=== PATIENT | female | born 1990 | race Caucasian/White ===

== ENCOUNTER 2018-10-23 12:34 | Emergency (ER) | payer OTHER ==
--- NOTE | 2018-10-23 13:06 | EDM.PDOC ---
ED HPI GENERAL MEDICAL PROBLEM - General Chief Complaint: Abdominal Pain Stated Complaint: STOMACH PAIN Time Seen by Provider: 10/23/18 12:35 Source of Information: Reports: Patient History Limitations: Reports: No Limitations - History of Present Illness INITIAL COMMENTS - FREE TEXT/NARRATIVE: HISTORY AND PHYSICAL: History of present illness: Patient is a 28-year-old female presents to the ED today with concern of central abdominal pain since last night. Patient states she has a history of gastric bypass as well at her baseline and has a constant abdominal pain since the surgery that was done in April of this year. Patient states she did not have any complications of the surgery. This was done at [facility] in [place]. Patient states she was sitting at home last night when she started to have 9 out of 10 mid abdominal pain. Patient states she's had limited eating since due to pain but has not vomited. Patient denies any other health history or any other symptoms or concerns. Patient states she also has a history of cholecystectomy. Patient denies fever, chills, chest pain, shortness of breath, or cough. Denies headache, neck stiff ness, change in vision, syncope, or near syncope. Denies vomiting, diarrhea, constipation, or dysuria. Has not noted any blood in urine or stool. Review of systems: As per history of present illness and below otherwise all systems reviewed and negative. Past medical history: As per history of present illness and as reviewed below otherwise noncontributory. Surgical history: As per history of present illness and as reviewed below otherwise noncontributory. Social history: See social history for further information Family history: As per history of present illness and as reviewed below otherwise noncontributory. Physical exam: General: Patient is alert, oriented, and in no acute distress. Patient laying on exam table; mildly uncomfortable holding abdomen. HEENT: Atraumatic, normocephalic, pupils equal and reactive bilaterally, negative for conjunctival pallor or scleral icterus, mucous membranes moist, TMs normal bilaterally, throat clear, neck supple, nontender, trachea midline. No drooling or trismus noted. No meningeal signs. No hot potato voice noted. Lungs: Clear to auscultation, breath sounds equal bilaterally, chest nontender. Heart: S1S2, regular rate and rhythm without overt murmur Abdomen: Soft, nondistended. Severe pain to palpation of the generalized abdomen with guarding and positive rebound. Negative for masses or hepatosplenomegaly. Negative for costovertebral tenderness. Pelvis: Stable nontender. Genitourinary: Deferred. Rectal: Deferred. Skin: Intact, warm, dry. No lesions or rashes noted. Extremities: Atraumatic, negative for cords or calf pain. Neurovascular unremarkable. Neuro: Awake, alert, oriented. Cranial nerves II through XII unremarkable. Cerebellum unremarkable. Motor and sensory unremarkable throughout. Exam nonfocal. Notes: Dr. York directly involved in patient care. Voices understanding and is agreeable to plan of care. Denies any further questions or concerns at this time. Diagnostics: CBC, CMP, UA, lipase, abdominal pelvic CT, TVUS Therapeutics: Saline, Toradol, Zofran Prescription: None Impression: Ovarian cyst H/O gastric bypass surgery Plan: 1. Follow up with your gastric bypass surgeon as discussed. Follow up with the [employer]X INTERACTION DESIGNER as discussed. 2. You can alternate ibuprofen and Tylenol as directed for pain and discomfort. 3. Return to the ED as needed and as discussed. Definitive disposition and diagnosis as appropriate pending reevaluation and review of above. Abdominal Pain Score (Numeric/FACES): 10 - Related Data Allergies Allergy/AdvReac Type Severity Reaction Status Date / Time No Known Allergies Allergy Verified 06/27/14 11:44 Home Meds: Home Meds . [No Known Home Meds] 06/27/14 [History] Past Medical History - Infectious Disease History Infectious Disease History: Reports: Chicken Pox - Past Surgical History GI Surgical History: Reports: Bariatric Procedure Female Surgical History: Reports: Tubal Ligation Social & Family History - Family History Family Medical History: Noncontributory - Tobacco Use Smoking Status *Q: Never Smoker Second Hand Smoke Exposure: No - Caffeine Use Caffeine Use: Reports: None - Recreational Drug Use Recreational Drug Use: No ED ROS GENERAL - Review of Systems Review Of Systems: ROS reveals no pertinent complaints other than HPI. ED EXAM, GENERAL - Physical Exam Exam: See Below (See dictation) Course - Vital Signs Last Recorded V/S: Last Vital Signs Temp 36.6 C 10/23/18 12:53 Pulse 69 10/23/18 15:27 Resp 18 10/23/18 15:27 BP 106/59 L 10/23/18 15:27 Pulse Ox 97 10/23/18 15:27 - Orders/Labs/Meds Orders: Active Orders 24 hr Category Date Time Status CULTURE URINE [RM] Stat Lab 10/23/18 12:35 Received Labs: Laboratory Tests 10/23/18 10/23/18 10/23/18 Range/Units 12:35 13:10 13:10 WBC 8.31 (4.0-11.0) K/uL RBC 4.06 L (4.30-5.90) M/uL Hgb 12.5 (12.0-16.0) g/dL Hct 37.7 (36.0-46.0) % MCV 92.9 (80.0-98.0) fL MCH 30.8 (27.0-32.0) pg MCHC 33.2 (31.0-37.0) g/dL RDW Std Deviation 45.3 (28.0-62.0) fl RDW Coeff of Man 13 (11.0-15.0) % Plt Count 207 (150-400) K/uL MPV 11.60 (7.40-12.00) fL Neut % (Auto) 77.8 (48.0-80.0) % Lymph % (Auto) 15.5 L (16.0-40.0) % [place] % (Auto) 5.4 (0.0-15.0) % Eos % (Auto) 1.1 (0.0-7.0) % Baso % (Auto) 0.2 (0.0-1.5) % Neut # (Auto) 6.5 H (1.4-5.7) K/uL Lymph # (Auto) 1.3 (0.6-2.4) K/uL [place] # (Auto) 0.5 (0.0-0.8) K/uL Eos # (Auto) 0.1 (0.0-0.7) K/uL Baso # (Auto) 0.0 (0.0-0.1) K/uL Nucleated RBC % 0.0 /100WBC Nucleated RBCs # 0 K/uL Sodium 141 (136-145) mmol/L Potassium 4.0 (3.5-5.1) mmol/L Chloride 106 (98-107) mmol/L Carbon Dioxide 22.1 (21.0-32.0) mmol/L BUN 9 (7.0-18.0) mg/dL Creatinine 0.7 (0.6-1.0) mg/dL Est Cr Clr Drug Dosing 111.01 mL/min Estimated GFR (MDRD) > 60.0 ml/min Glucose 87 (74-106) mg/dL Calcium 9.1 (8.5-10.1) mg/dL Total Bilirubin 0.6 (0.2-1.0) mg/dL AST 15 (15-37) IU/L ALT 17 (14-63) IU/L Alkaline Phosphatase 68 (46-116) U/L Total Protein 6.1 L (6.4-8.2) g/dL Albumin 3.3 L (3.4-5.0) g/dL Globulin 2.8 (2.6-4.0) g/dL Albumin/Globulin Ratio 1.2 (0.9-1.6) Lipase 46 L (73-393) U/L Urine Color YELLOW Urine Appearance CLEAR Urine pH 6.0 (5.0-8.0) Ur Specific [place] 1.025 (1.001-1.035) Urine Protein NEGATIVE (NEGATIVE) mg/dL Urine Glucose (UA) NEGATIVE (NEGATIVE) mg/dL Urine Ketones >=80 (NEGATIVE) mg/dL Urine Occult Blood NEGATIVE (NEGATIVE) Urine Nitrite NEGATIVE (NEGATIVE) Urine Bilirubin NEGATIVE (NEGATIVE) Urine Urobilinogen 2.0 H (<2.0) EU/dL Ur Leukocyte Esterase TRACE H (NEGATIVE) Urine RBC 0-2 (0-2/HPF) Urine WBC 2-4 (0-5/HPF) Ur Epithelial Cells RARE (NONE-FEW) Urine Bacteria FEW (NEGATIVE) Urine Mucus FEW (NONE-MOD) Meds: Medications Discontinued Medications Generic Name Dose Route Start Last Admin Trade Name Freq PRN Reason Stop Dose Admin Sodium Chloride 1,000 mls @ 999 mls/hr 10/23/18 12:55 10/23/18 13:14 Normal Saline IV 10/23/18 13:55 999 mls/hr BOLUS ONE Administration Iopamidol 100 ml 10/23/18 14:59 10/23/18 15:00 Isovue Multipack-370 (76%) IVPUSH 10/23/18 15:00 100 ml ONETIME STA Administration Ketorolac Tromethamine 30 mg 10/23/18 12:55 10/23/18 13:17 Toradol IVPUSH 10/23/18 12:56 30 mg ONETIME ONE Administration Ondansetron HCl 4 mg 10/23/18 12:55 10/23/18 13:15 Zofran IVPUSH 10/23/18 12:56 4 mg ONETIME ONE Administration Departure - Departure Time of Disposition: 16:50 Disposition: Home, Self-Care 01 Clinical Impression: Ovarian cyst, History of gastric bypass - Discharge Information Referrals: PCP,Unknown [Primary Care Provider] - Forms: ED Department Discharge Additional Instructions: The following information is given to patients seen in the emergency department who are being discharged to home. This information is to outline your options for follow-up care. We provide all patients seen in our emergency department with a follow-up referral. The need for follow-up, as well as the timing and circumstances, are variable depending upon the specifics of your emergency department visit. If you don't have a primary care physician on staff, we will provide you with a referral. We always advise you to contact your personal physician following an emergency department visit to inform them of the circumstance of the visit and for follow-up with them and/or the need for any referrals to a consulting specialist. The emergency department will also refer you to a specialist when appropriate. This referral assures that you have the opportunity for follow-up care with a specialist. All of these measure are taken in an effort to provide you with optimal care, which includes your follow-up. Under all circumstances we always encourage you to contact your private physician who remains a resource for coordinating your care. When calling for follow-up care, please make the office aware that this follow-up is from your recent emergency room visit. If for any reason you are refused follow-up, please contact the [facility] Emergency Department at and asked to speak to the emergency department charge nurse. [facility] [address] [place] [id number] [id number] [facility] [address] [place] [id number] 1. Follow up with your gastric bypass surgeon as discussed. Follow up with the UX INTERACTION DESIGNER as discussed. 2. You can alternate ibuprofen and Tylenol as directed for pain and discomfort. 3. Return to the ED as needed and as discussed. - My Orders Last 24 Hours: My Active Orders 10/23/18 12:35 CULTURE URINE [RM] Stat - Assessment/Plan Last 24 Hours: My Active Orders 10/23/18 12:35 CULTURE URINE [RM] Stat
[2018-10-23] MEDS: Sodium Chloride 0.9% 1,000 ML IV ONE (13:14)
[2018-10-23] MEDS: Ondansetron 4 MG/2 ML SDV IVPUSH ONE (13:15)
[2018-10-23] MEDS: Ketorolac 30 MG/ML SDV IVPUSH ONE (13:17)
[2018-10-23 13:58] LABS: BLOOD UREA NITROGEN,BUN 9 mg/dL (7.0-18.0); CARBON DIOXIDE,CO2 22.1 mmol/L (21.0-32.0); CHLORIDE,CL 106 mmol/L (98-107); GLUCOSE RANDOM 87 mg/dL (74-106); SODIUM,NA 141 mmol/L (136-145)
[2018-10-23] MEDS: Iopamidol 755 MG/ML 500 ML Multipack Bottle IVPUSH STA (15:00)
--- NOTE | 2018-10-23 15:18 | CT ---
CT abdomen and pelvis Technique: Multiple axial sections were obtained from above the dome of the diaphragm inferiorly through the pubic symphysis. Intravenous contrast was utilized. No oral contrast has been. Comparison: No prior abdominal imaging. Findings: Visualized lung bases show nothing acute. Wedge-shaped area of decreased density is seen next to the ligamentum teres fissure. No other abnormal parenchymal densities are seen within the liver. Spleen appears within normal limits. Previous stomach surgery is noted. Adrenal glands show no nodule. Pancreas is within normal limits. Kidneys show symmetric contrast enhancement with no hydronephrosis or mass being seen. Pancreas is within normal limits. Aorta shows no aneurysm. No retroperitoneal adenopathy or mesenteric abnormalities are seen. Small fat-containing umbilical hernia is noted. Small amount of free fluid is seen within the pelvis most likely due to ovarian cyst leakage. Fibroid noted within the uterus measuring 3.3 cm in size. Cyst is noted within the left ovary measuring 3.7 cm in size. No inflammatory change is seen. Appendix is felt to be visualized and is within normal limits. Bone window settings were reviewed which shows no acute osseous abnormality. Impression: 1. Fluid within the pelvis most likely resulting from ovarian cyst leakage. There is a 3.7 cm cyst noted within the left ovary. 2. Small uterine fibroid. 3. Wedge-shaped low-density finding anteriorly within the liver next to the ligamentum teres fissure. If patient has had no previous trauma for this to represent previous liver laceration, MRI is recommended to further evaluate which should include contrast. 4. Other incidental findings. Diagnostic code #9 MTDD
--- NOTE | 2018-10-23 16:26 | US ---
Comparison: Prior CT abdomen and pelvis exam performed earlier on the same day ( 2:40 PM). Findings: Free fluid is noted within the cul-de-sac and within the right adnexa. Follicles are seen within the ovaries. Nabothian cysts are present. Left ovary shows a complicated cyst measuring about 3.2 cm most likely due to hemorrhagic cyst. Uterine fibroid is seen on the left side. Fibroid measures about 3.0 cm. No other myometrial abnormality is seen. Endometrial thickness is 1.2 cm. Measurements: Uterus: Length 8.7 cm, AP height is 4.4 cm, transverse width is 5.4 cm Right ovary: 3.3 x 2.5 x 1.9 cm Left ovary: 4.3 with 4.0 x 3.4 cm Impression: 1. Uterine fibroid. 2. Complicated left ovarian cyst measuring 3.2 cm most likely representing hemorrhagic cyst. 3. Fair amount of free fluid is seen within cul-de-sac and right adnexa. 4. Nabothian cysts. Diagnostic code #3 MTDD
[2018-10-23 17:09] VITALS: BP 109/69
== END 2018-10-23 17:09 | disposition home or self-care (01) ==
LOC: MW.ED 12:34
DX: N83.202 Unspecified ovarian cyst, left side (principal); Z98.84 Bariatric surgery status; Z90.49 Acquired absence of other specified parts of digestive tract; Z98.51 Tubal ligation status
CPT/HCPCS: 74177; 76830; 80053; 81001; 83690; 85025; 87086; 87088; 87186; 96361; 96374; 96375; 99284; J1885; J2405; J7040; Q9967

== ENCOUNTER 2018-11-11 06:25 | Day surgery (SDC) | payer OTHER ==
[2018-11-11] MEDS ORDERED: Propofol 200 MG/20 ML SDV ONE (07:18)
[2018-11-11] MEDS ORDERED: Midazolam 1 MG/ML 2 ML SDV ONE (07:18)
[2018-11-11] MEDS ORDERED: fentaNYL 100 MCG/2 ML SDV ONE (07:18)
[2018-11-11] MEDS ORDERED: Scopolamine 1.5 MG Transdermal Patch ONE (07:21)
[2018-11-11] MEDS ORDERED: Ondansetron 4 MG/2 ML SDV ONE (07:21)
[2018-11-11] MEDS ORDERED: Rocuronium 100 MG/10 ML Syringe ONE (07:21)
[2018-11-11] MEDS ORDERED: Dexamethasone 4 MG/ML 5 ML MDV ONE (07:21)
[2018-11-11] MEDS ORDERED: Lidocaine 2% 5 ML SDV ONE (07:21)
[2018-11-11] MEDS ORDERED: Scopolamine 1.5 MG Transdermal Patch TRDERM PRN (07:22)
--- NOTE | 2018-11-11 07:22 | PCM.PREANE ---
Preanesthetic Assessment - Anesthesia/Transfusion/Family Hx Anesthesia History: Prior Anesthesia Without Reaction Family History of Anesthesia Reaction: No Transfusion History: No Prior Transfusion(s) Intubation History: Unknown - Review of Systems General: No Symptoms Pulmonary: No Symptoms Cardiovascular: No Symptoms Gastrointestinal: No Symptoms Neurological: No Symptoms Other: Reports: None - Physical Assessment Vital Signs: Last Vital Signs Temp 36.4 C 11/11/18 07:04 Pulse 98 11/11/18 07:04 Resp 16 11/11/18 07:04 BP 118/62 11/11/18 07:04 Pulse Ox 99 11/11/18 07:04 Height: 5 ft 4 in Weight: 83.461 kg ASA Class: 2 Mental Status: Alert & Oriented x3 Airway Class: Mallampati = 2 Dentition: Reports: Normal Dentition Thyro-Mental Finger Breadths: 3 Mouth Opening Finger Breadths: 3 ROM/Head Extension: Full Lungs: Clear to Auscultation, Normal Respiratory Effort Cardiovascular: Regular Rate, Regular Rhythm - Lab Values: Laboratory Last Values WBC 4.21 K/uL (4.0-11.0) 11/11/18 07:06 RBC 3.93 M/uL (4.30-5.90) L 11/11/18 07:06 Hgb 12.1 g/dL (12.0-16.0) 11/11/18 07:06 Hct 37.1 % (36.0-46.0) 11/11/18 07:06 MCV 94.4 fL (80.0-98.0) 11/11/18 07:06 MCH 30.8 pg (27.0-32.0) 11/11/18 07:06 MCHC 32.6 g/dL (31.0-37.0) 11/11/18 07:06 RDW Std Deviation 46.2 fl (28.0-62.0) 11/11/18 07:06 RDW Coeff of Man 13 % (11.0-15.0) 11/11/18 07:06 Plt Count 176 K/uL (150-400) 11/11/18 07:06 MPV 11.30 fL (7.40-12.00) 11/11/18 07:06 Neut % (Auto) 51.7 % (48.0-80.0) 11/11/18 07:06 Lymph % (Auto) 34.9 % (16.0-40.0) 11/11/18 07:06 [place] % (Auto) 8.1 % (0.0-15.0) 11/11/18 07:06 Eos % (Auto) 4.8 % (0.0-7.0) 11/11/18 07:06 Baso % (Auto) 0.5 % (0.0-1.5) 11/11/18 07:06 Neut # (Auto) 2.2 K/uL (1.4-5.7) 11/11/18 07:06 Lymph # (Auto) 1.5 K/uL (0.6-2.4) 11/11/18 07:06 [place] # (Auto) 0.3 K/uL (0.0-0.8) 11/11/18 07:06 Eos # (Auto) 0.2 K/uL (0.0-0.7) 11/11/18 07:06 Baso # (Auto) 0.0 K/uL (0.0-0.1) 11/11/18 07:06 Nucleated RBC % 0.0 /100WBC 11/11/18 07:06 Nucleated RBCs # 0 K/uL 11/11/18 07:06 - Allergies Allergies/Adverse Reactions: Allergies Allergy/AdvReac Type Severity Reaction Status Date / Time morphine Allergy Nausea and Verified 11/11/18 07:19 Vomiting - Blood Blood Available: No - Anesthesia Plan Pre-Op Medication Ordered: None - Acknowledgements Anesthesia Type Planned: General Anesthesia Pt an Appropriate Candidate for the Planned Anesthesia: Yes Alternatives and Risks of Anesthesia Discussed w Pt/Guardian: Yes Pt/Guardian Understands and Agrees with Anesthesia Plan: Yes PreAnesthesia Questionnaire HEENT History: Reports: None Cardiovascular History: Reports: None Respiratory History: Reports: None Gastrointestinal History: Reports: Hemorrhoids Genitourinary History: Reports: Renal Calculus [employer]IL History: Reports: Musculoskeletal History: Reports: Fracture Other Musculoskeletal History: hx fx arm as a chlld Neurological History: Reports: Other (See Below) Other Neuro History: increased intracarianal pressure, has had multiple lumbar punctures to relieve pressure- OK since loosing 100 pounds after gastric by- pass in april of this year Psychiatric History: Reports: Anxiety, Depression Endocrine/Metabolic History: Reports: Obesity/BMI 30+ Hematologic History: Reports: None Immunologic History: Reports: None Oncologic (Cancer) History: Reports: None Dermatologic History: Reports: None - Infectious Disease History Infectious Disease History: Reports: Chicken Pox - Past Surgical History Head Surgeries/Procedures: Reports: None HEENT Surgical History: Reports: None Cardiovascular Surgical History: Reports: None Respiratory Surgical History: Reports: None GI Surgical History: Reports: Bariatric Procedure, Cholecystectomy Female Surgical History: Reports: Tubal Ligation Endocrine Surgical History: Reports: None Neurological Surgical History: Reports: Other (See Below) Other Neurological Surgeries/Procedures: multiple lumbar punctures Musculoskeletal Surgical History: Reports: None Oncologic Surgical History: Reports: None Dermatological Surgical History: Reports: None - SUBSTANCE USE Smoking Status *Q: Never Smoker Recreational Drug Use History: No - HOME MEDS Home Medications: Home Meds Calcium Carbonate [Calcium] 2 tab PO DAILY 11/07/18 [History] Ibuprofen [Motrin Ib] 4 tab PO ASDIRECTED PRN 11/07/18 [History] Multivit-Min/Iron/Folic Acid/K [Bariatric Mv-Iron 45 mg Cap] 1 tab PO DAILY [History] PARoxetine [Paxil] 20 mg PO DAILY 11/07/18 [History]
[2018-11-11] MEDS ORDERED: Fluorescein 5 ML Vial ONE (07:23)
[2018-11-11] MEDS ORDERED: Bupivacaine 0.25% 10 ML SDV ONE (07:23)
[2018-11-11 07:39] LABS: BLOOD UREA NITROGEN,BUN 9 mg/dL (7.0-18.0); CHLORIDE,CL 104 mmol/L (98-107); GLUCOSE RANDOM 74 mg/dL (74-106); POTASSIUM,K 3.6 mmol/L (3.5-5.1); SODIUM,NA 140 mmol/L (136-145)
[2018-11-11] MEDS ORDERED: Sodium Chloride 0.9% 10 ML SDV IV PRN (07:56)
[2018-11-11] MEDS ORDERED: Sodium Chloride 0.9% 10 ML Syringe FLUSH PRN (07:56)
[2018-11-11] MEDS ORDERED: Sodium Chloride 0.9% 2.5 ML Syringe FLUSH PRN (07:56)
[2018-11-11] MEDS ORDERED: ceFAZolin 2 GM in Premix Bag 1 BAG IV ONE (07:56)
[2018-11-11] MEDS ORDERED: ceFAZolin/Dextrose,Iso-Osmotic 2 GM/50 ML Duplex Bag IV ONE (08:09)
[2018-11-11] MEDS ORDERED: Albuterol 0.083% 2.5 MG/3 ML Neb Soln NEB PRN (08:45)
[2018-11-11] MEDS ORDERED: 50% Dextrose in Water 50 ML Syringe IVPUSH PRN (08:45)
[2018-11-11] MEDS ORDERED: Naloxone 0.4 MG/ML Syringe IVPUSH PRN (08:45)
[2018-11-11] MEDS ORDERED: EPINEPHrine 1:10,000 1 MG/10 ML Syringe IVPUSH PRN (08:45)
[2018-11-11] MEDS ORDERED: Atropine 0.1 MG/ML 10 ML Syringe IVPUSH PRN ×2 (08:45)
[2018-11-11] MEDS ORDERED: fentaNYL 100 MCG/2 ML SDV IVPUSH PRN (08:45)
[2018-11-11] MEDS ORDERED: HYDROmorphone 2 MG/ML Syringe ONE (09:25)
[2018-11-11] MEDS ORDERED: ePHEDrine 50 MG/ML SDV ONE (09:34)
[2018-11-11] MEDS ORDERED: Glycopyrrolate 0.2 MG/ML SDV ONE (09:37)
[2018-11-11] MEDS ORDERED: Octyl 2-Cyanoacrylate 1 Tube ONE (09:42)
[2018-11-11] MEDS ORDERED: Furosemide 40 MG/4 ML VIAL ONE (09:53)
[2018-11-11] MEDS ORDERED: HYDROmorphone 2 MG/ML Syringe IVPUSH PRN (10:00)
[2018-11-11] MEDS ORDERED: Neostigmine Methylsulfate 1 MG/ML 5 ML Syringe ONE (10:03)
[2018-11-11] MEDS ORDERED: Ketorolac 30 MG/ML SDV ONE (10:10)
[2018-11-11] MEDS ORDERED: Ibuprofen 800 MG Tab PO PRN (10:31)
[2018-11-11] MEDS ORDERED: Ondansetron 4 MG/2 ML SDV IVPUSH PRN (10:31)
[2018-11-11] MEDS ORDERED: Ketorolac 30 MG/ML SDV IVPUSH ONE (10:31)
[2018-11-11] MEDS ORDERED: Promethazine 25 MG/ML SDV IM PRN (10:31)
--- NOTE | 2018-11-11 10:40 | PCM.OPNOTE ---
- General Post-Op/Procedure Note Date of Surgery/Procedure: 11/11/18 Operative Procedure(s): Total Laparoscopic Hysterectomy. Bilateral salphingectomy Findings: Normal sized anterverted uterus Evidence of BTL noted in tube Pre Op Diagnosis: Abnormal uterine bleeding. Chronic Pelvic pain Post-Op Diagnosis: same Anesthesia Technique: General ET Tube Primary Surgeon: Jose Cedillo Secondary Surgeon: Izabela Rapp Anesthesia Provider: Anya Martinez Pathology: Uterus and tubes Fluid Replacement, Intraop: 1,600 Output, Urine Amount: 225 EBL in mLs: 100 Complications: None Condition: Good
--- NOTE | 2018-11-11 11:17 | PCM.POSTAN ---
POST ANESTHESIA ASSESSMENT - MENTAL STATUS Mental Status: Alert, Oriented - VITAL SIGNS Vital Signs: Last Vital Signs Temp 36.4 C 11/11/18 10:24 Pulse 66 11/11/18 11:04 Resp 14 11/11/18 11:04 BP 98/56 L 11/11/18 11:04 Pulse Ox 100 11/11/18 11:04 - RESPIRATORY Respiratory Status: Respiratory Rate WNL, Airway Patent, O2 Saturation Stable - CARDIOVASCULAR CV Status: Pulse Rate WNL, Blood Pressure Stable - GASTROINTESTINAL GI Status: No Symptoms - PAIN Pain Score: 0 - POST OP HYDRATION Hydration Status: Adequate & Stable - OBSERVATIONS Free Text/Narrative:: no anesthesia problems
[2018-11-11] MEDS: Metoclopramide 10 MG/2 ML SDV IVPUSH SCH ×3 (14:55→23:44)
[2018-11-11] MEDS: Acetaminophen 1,000 MG in Premix Bag 1 BAG IV SCH ×5 (14:56→23:51)
[2018-11-11] MEDS ORDERED: Simethicone 80 MG Tab.Chew PO PRN (15:04)
[2018-11-11] MEDS: Ketorolac 30 MG/ML SDV IVPUSH SCH (17:46)
[2018-11-12] MEDS: Ketorolac 30 MG/ML SDV IVPUSH SCH (02:01)
[2018-11-12] MEDS: Metoclopramide 10 MG/2 ML SDV IVPUSH SCH (05:59)
[2018-11-12] MEDS: Acetaminophen 1,000 MG in Premix Bag 1 BAG IV SCH (06:04)
[2018-11-12 06:54] LABS: BLOOD UREA NITROGEN,BUN 10 mg/dL (7.0-18.0); CARBON DIOXIDE,CO2 26.9 mmol/L (21.0-32.0); CHLORIDE,CL 107 mmol/L (98-107); GLUCOSE RANDOM 73 mg/dL (74-106); POTASSIUM,K 4.2 mmol/L (3.5-5.1); SODIUM,NA 143 mmol/L (136-145)
[2018-11-12 07:28] VITALS: BP 100/50; PULSE 82
--- NOTE | 2018-11-12 07:54 | PCM48HPAN ---
Post Anesthesia Note - EVALUATION WITHIN 48HRS OF ANESTHETIC Vital Signs in Normal Range: Yes Patient Participated in Evaluation: Yes Respiratory Function Stable: Yes Airway Patent: Yes Cardiovascular Function Stable: Yes Hydration Status Stable: Yes Pain Control Satisfactory: Yes Nausea and Vomiting Control Satisfactory: Yes Mental Status Recovered: Yes Vital Signs: Last Vital Signs Temp 37.1 C 11/12/18 07:13 Pulse 82 11/12/18 07:13 Resp 16 11/12/18 07:13 BP 100/50 L 11/12/18 07:13 Pulse Ox 100 11/12/18 07:13 - COMMENTS/OBSERVATIONS Free Text/Narrative:: no anesthesia problems
--- NOTE | 2018-11-12 09:06 | PCM.SURGPN ---
- General Info Date of Service: 11/12/18 Date of Surgery/Procedure: 11/12/18 POD#: 1 Post-Op Diagnosis: s/p TLH/BS Functional Status: Reports: Pain Controlled, Tolerating Diet, Ambulating, Urinating - Review of Systems General: Reports: No Symptoms HEENT: Reports: No Symptoms Pulmonary: Reports: No Symptoms Cardiovascular: Reports: No Symptoms Gastrointestinal: Reports: No Symptoms Genitourinary: Reports: No Symptoms Musculoskeletal: Reports: No Symptoms Skin: Reports: No Symptoms Neurological: Reports: No Symptoms Psychiatric: Reports: No Symptoms - Patient Data Vitals - Most Recent: Last Vital Signs Temp 37.1 C 11/12/18 07:13 Pulse 82 11/12/18 07:13 Resp 16 11/12/18 07:13 BP 100/50 L 11/12/18 07:13 Pulse Ox 100 11/12/18 07:13 Weight - Most Recent: 83.461 kg I&O - Last 24 Hours: Intake & Output 11/11/18 11/12/18 11/12/18 22:59 06:59 14:59 Output Total 350 Balance -350 Lab Results Last 24 Hrs: Laboratory Results - last 24 hr 11/12/18 11/12/18 Range/Units 06:05 06:05 WBC 7.56 (4.0-11.0) K/uL RBC 3.64 L (4.30-5.90) M/uL Hgb 11.3 L (12.0-16.0) g/dL Hct 34.5 L (36.0-46.0) % MCV 94.8 (80.0-98.0) fL MCH 31.0 (27.0-32.0) pg MCHC 32.8 (31.0-37.0) g/dL RDW Std Deviation 46.6 (28.0-62.0) fl RDW Coeff of Man 13 (11.0-15.0) % Plt Count 188 (150-400) K/uL MPV 11.60 (7.40-12.00) fL Neut % (Auto) 51.6 (48.0-80.0) % Lymph % (Auto) 40.9 H (16.0-40.0) % [place] % (Auto) 6.9 (0.0-15.0) % Eos % (Auto) 0.5 (0.0-7.0) % Baso % (Auto) 0.1 (0.0-1.5) % Neut # (Auto) 3.9 (1.4-5.7) K/uL Lymph # (Auto) 3.1 H (0.6-2.4) K/uL [place] # (Auto) 0.5 (0.0-0.8) K/uL Eos # (Auto) 0.0 (0.0-0.7) K/uL Baso # (Auto) 0.0 (0.0-0.1) K/uL Nucleated RBC % 0.0 /100WBC Nucleated RBCs # 0 K/uL Sodium 143 (136-145) mmol/L Potassium 4.2 (3.5-5.1) mmol/L Chloride 107 (98-107) mmol/L Carbon Dioxide 26.9 (21.0-32.0) mmol/L BUN 10 (7.0-18.0) mg/dL Creatinine 0.8 (0.6-1.0) mg/dL Est Cr Clr Drug Dosing 89.60 mL/min Estimated GFR (MDRD) > 60.0 ml/min Glucose 73 L (74-106) mg/dL Calcium 8.6 (8.5-10.1) mg/dL Med Orders - Current: Current Medications Albuterol (Proventil Neb Soln) 2.5 mg NEB ONETIME PRN PRN Reason: Wheezing Atropine Sulfate (Atropine 0.1 Mg/Ml) 0.5 mg IVPUSH ASDIRECTED PRN PRN Reason: Hypo-perfusion Atropine Sulfate (Atropine 0.1 Mg/Ml) 1 mg IVPUSH ASDIRECTED PRN PRN Reason: Hypo-Perfusion Dextrose/Water (Dextrose 50% In Water) 50 ml IVPUSH ASDIRECTED PRN PRN Reason: Hypoglycemia Epinephrine HCl (Epinephrine 1:10,000) 1 mg IVPUSH ASDIRECTED PRN PRN Reason: ACLS Guidelines Fentanyl (Sublimaze) 50 mcg IVPUSH Q5M PRN PRN Reason: Pain Hydromorphone HCl (Dilaudid) 0.5 mg IVPUSH Q2H PRN PRN Reason: Breakthrough Pain Last Admin: 11/11/18 11:23 Dose: 0.25 mg Acetaminophen 1,000 mg/ Premix 100 mls @ 400 mls/hr IV Q6H [facility] Last Admin: 11/12/18 06:04 Dose: 400 mls/hr Ibuprofen (Motrin) 800 mg PO Q6H PRN PRN Reason: Pain (mild 1-3) Ketorolac Tromethamine (Toradol) 30 mg IVPUSH Q8H [facility] Stop: 11/16/18 10:32 Last Admin: 11/12/18 02:01 Dose: 30 mg Metoclopramide HCl (Reglan) 10 mg IVPUSH Q6H [facility] Last Admin: 11/12/18 05:59 Dose: 10 mg Naloxone HCl (Narcan) 0.1 mg IVPUSH ASDIRECTED PRN PRN Reason: Respiratory Depression Ondansetron HCl (Zofran) 4 mg IVPUSH Q6H PRN PRN Reason: Nausea/Vomiting Promethazine HCl (Phenergan) 25 mg IM Q6H PRN PRN Reason: Nausea/Vomiting Scopolamine (Transderm-Scop) 1.5 mg TRDERM Q72H PRN PRN Reason: Nausea Last Admin: 11/11/18 07:32 Dose: 1.5 mg Simethicone (Simethicone) 80 mg PO ASDIRECTED PRN PRN Reason: Gas Last Admin: 11/11/18 15:24 Dose: 80 mg Sodium Chloride (Saline Flush) 10 ml FLUSH ASDIRECTED PRN PRN Reason: Keep Vein Open Last Admin: 11/11/18 23:44 Dose: 10 ml Sodium Chloride (Saline Flush) 2.5 ml FLUSH ASDIRECTED PRN PRN Reason: Keep Vein Open Sodium Chloride (Normal Saline) 10 ml IV ASDIRECTED PRN PRN Reason: IV Use Discontinued Medications Bupivacaine HCl (Sensorcaine-Mpf 0.25%) Confirm Administered Dose 10 ml .ROUTE .STK-MED ONE Stop: 11/11/18 07:24 Cefazolin Sodium/Dextrose (Ancef) Confirm Administered Dose 2 gm IV .STK-MED ONE Stop: 11/11/18 08:10 Dexamethasone (Dexamethasone) Confirm Administered Dose 20 mg .ROUTE .STK-MED ONE Stop: 11/11/18 07:22 Ephedrine Sulfate (Ephedrine Sulfate) Confirm Administered Dose 50 mg .ROUTE .STK-MED ONE Stop: 11/11/18 09:35 Fentanyl (Sublimaze) Confirm Administered Dose 100 mcg .ROUTE .STK-MED ONE Stop: 11/11/18 07:19 Fluorescein Sodium (Ak-Fluor) Confirm Administered Dose 5 ml .ROUTE .STK-MED ONE Stop: 11/11/18 07:24 Furosemide (Lasix) Confirm Administered Dose 40 mg .ROUTE .STK-MED ONE Stop: 11/11/18 09:54 Glycopyrrolate (Robinul) Confirm Administered Dose 0.4 mg .ROUTE .STK-MED ONE Stop: 11/11/18 09:38 Hydromorphone HCl (Dilaudid) Confirm Administered Dose 2 mg .ROUTE .STK-MED ONE Stop: 11/11/18 09:26 Acetaminophen (Ofirmev) Confirm Administered Dose 100 mls @ as directed IV .STK- MED ONE Stop: 11/11/18 07:24 Cefazolin Sodium/Dextrose 2 gm (/ Premix) 50 mls @ 100 mls/hr IV ONETIME ONE Stop: 11/11/18 08:25 Last Admin: 11/11/18 17:37 Dose: Not Given Ketorolac Tromethamine (Toradol) Confirm Administered Dose 30 mg .ROUTE .STK- MED ONE Stop: 11/11/18 10:11 Ketorolac Tromethamine (Toradol) 30 mg IVPUSH ONETIME ONE Stop: 11/11/18 10:32 Last Admin: 11/11/18 14:56 Dose: Not Given Lidocaine (Xylocaine-Mpf 2%) Confirm Administered Dose 5 ml .ROUTE .STK-MED ONE Stop: 11/11/18 07:22 Midazolam HCl (Versed 1 Mg/Ml) Confirm Administered Dose 2 mg .ROUTE .STK-MED ONE Stop: 11/11/18 07:19 Neostigmine Methylsulfate (Neostigmine) Confirm Administered Dose 5 mg .ROUTE .STK-MED ONE Stop: 11/11/18 10:04 Octyl Cyanoacrylate (Dermabond Advance) Confirm Administered Dose 1 applic .ROUTE .STK-MED ONE Stop: 11/11/18 09:43 Ondansetron HCl (Zofran) Confirm Administered Dose 4 mg .ROUTE .STK-MED ONE Stop: 11/11/18 07:22 Propofol (Diprivan 20 Ml) Confirm Administered Dose 200 mg .ROUTE .STK-MED ONE Stop: 11/11/18 07:19 Rocuronium [place] (Zemuron) Confirm Administered Dose 100 mg .ROUTE .STK-MED ONE Stop: 11/11/18 07:22 Scopolamine (Transderm-Scop) Confirm Administered Dose 1.5 mg .ROUTE .STK-MED ONE Stop: 11/11/18 07:22 Last Admin: 11/11/18 17:36 Dose: Not Given Succinylcholine Chloride (Succinylcholine Chloride) Confirm Administered Dose 200 mg .ROUTE .STK-MED ONE Stop: 11/11/18 07:22 - Exam Wound/Incisions: Dressing Dry and Intact General: Alert HEENT: Pupils Equal Lungs: Clear to Auscultation Cardiovascular: Regular Rate, Regular Rhythm GI/Abdominal Exam: Normal Bowel Sounds Extremities: Normal Inspection Psy/Mental Status: Alert - Problem List & Annotations (1) S/P hysterectomy SNOMED Code(s): 156246289, 791912488, 518998402 Code(s): Z90.710 - ACQUIRED ABSENCE OF BOTH CERVIX AND UTERUS Status: Acute Current Visit: Yes - Problem List Review Problem List Initiated/Reviewed/Updated: Yes - My Orders Last 24 Hours: Active Orders 24 hr Category Date Time Status Antiembolic Devices [RC] .Routine Care 11/11/18 10:34 Active Antiembolic Devices [RC] PER UNIT ROUTINE Care 11/11/18 10:32 Active Bradycardia-Neuroaxis [employer] [RC] ROUTINE Care 11/11/18 08:50 Active Hypertension-Neuroaxis [employer] [RC] ROUTINE Care 11/11/18 08:50 Active Hypotension-Neuroaxis [employer] [RC] ROUTINE Care 11/11/18 08:50 Active Notify Provider Intake and Out [RC] ASDIRECTED Care 11/11/18 10:32 Active Notify Provider Vital Signs [RC] ASDIRECTED Care 11/11/18 10:32 Active Oxygen Therapy [RC] ASDIRECTED Care 11/11/18 10:32 Active Oxygen Therapy [RC] PRN Care 11/11/18 08:48 Active RT Incentive Spirometry [RC] Q2HWA Care 11/11/18 10:32 Active Up ad Anna [RC] PER UNIT ROUTINE Care 11/11/18 10:32 Active VTE/DVT Education [RC] PER UNIT ROUTINE Care 11/11/18 10:34 Active Vital Signs [RC] PER UNIT ROUTINE Care 11/11/18 10:32 Active Regular Diet [DIET] Diet 11/11/18 Lunch Active Acetaminophen [Ofirmev] 1,000 mg Med 11/11/18 12:00 Active Premix Bag 1 bag IV Q6H Albuterol [Proventil Neb Soln] Med 11/11/18 08:45 Active 2.5 mg NEB ONETIME PRN Atropine [Atropine 0.1 MG/ML] Med 11/11/18 08:45 Active 0.5 mg IVPUSH ASDIRECTED PRN Atropine [Atropine 0.1 MG/ML] Med 11/11/18 08:45 Active 1 mg IVPUSH ASDIRECTED PRN Dextrose 50% in Water Med 11/11/18 08:45 Active 50 ml IVPUSH ASDIRECTED PRN EPINEPHrine [EPINEPHrine 1:10,000] Med 11/11/18 08:45 Active 1 mg IVPUSH ASDIRECTED PRN HYDROmorphone [Dilaudid] Med 11/11/18 10:00 Active 0.5 mg IVPUSH Q2H PRN Ibuprofen [Motrin] Med 11/11/18 10:31 Active 800 mg PO Q6H PRN Ketorolac [Toradol] Med 11/11/18 16:00 Active 30 mg IVPUSH Q8H Metoclopramide [Reglan] Med 11/11/18 10:45 Active 10 mg IVPUSH Q6H Naloxone [Narcan] Med 11/11/18 08:45 Active 0.1 mg IVPUSH ASDIRECTED PRN Ondansetron [Zofran] Med 11/11/18 10:31 Active 4 mg IVPUSH Q6H PRN Promethazine [Phenergan] Med 11/11/18 10:31 Active 25 mg IM Q6H PRN Simethicone Med 11/11/18 15:04 Active 80 mg PO ASDIRECTED PRN fentaNYL [Sublimaze] Med 11/11/18 08:45 Active 50 mcg IVPUSH Q5M PRN DVT/VTE Prophylaxis Reflex [OM.PC] Routine Oth 11/11/18 10:31 Ordered Peripheral IV Discontinue [OM.PC] Routine Oth 11/11/18 10:32 Ordered Sequential Compression Device [OM.PC] Per Unit Routine Oth 11/11/18 10:32 Ordered Resuscitation Status Routine Resus Stat 11/11/18 10:31 Ordered Medication Orders Albuterol (Proventil Neb Soln) 2.5 mg NEB ONETIME PRN PRN Reason: Wheezing Atropine Sulfate (Atropine 0.1 Mg/Ml) 0.5 mg IVPUSH ASDIRECTED PRN PRN Reason: Hypo-perfusion Atropine Sulfate (Atropine 0.1 Mg/Ml) 1 mg IVPUSH ASDIRECTED PRN PRN Reason: Hypo-Perfusion Dextrose/Water (Dextrose 50% In Water) 50 ml IVPUSH ASDIRECTED PRN PRN Reason: Hypoglycemia Epinephrine HCl (Epinephrine 1:10,000) 1 mg IVPUSH ASDIRECTED PRN PRN Reason: ACLS Guidelines Fentanyl (Sublimaze) 50 mcg IVPUSH Q5M PRN PRN Reason: Pain Hydromorphone HCl (Dilaudid) 0.5 mg IVPUSH Q2H PRN PRN Reason: Breakthrough Pain Last Admin: 11/11/18 11:23 Dose: 0.25 mg Acetaminophen 1,000 mg/ Premix 100 mls @ 400 mls/hr IV Q6H [facility] Last Admin: 11/12/18 06:04 Dose: 400 mls/hr Infusion: 11/12/18 00:06 Dose: 400 mls/hr Admin: 11/11/18 23:51 Dose: 400 mls/hr Admin: 11/11/18 18:18 Dose: Not Given Admin: 11/11/18 17:37 Dose: Ibuprofen (Motrin) 800 mg PO Q6H PRN PRN Reason: Pain (mild 1-3) Ketorolac Tromethamine (Toradol) 30 mg IVPUSH Q8H [facility] Stop: 11/16/18 10:32 Last Admin: 11/12/18 02:01 Dose: 30 mg Admin: 11/11/18 17:46 Dose: 30 mg Metoclopramide HCl (Reglan) 10 mg IVPUSH Q6H [facility] Last Admin: 11/12/18 05:59 Dose: 10 mg Admin: 11/11/18 23:44 Dose: 10 mg Admin: 11/11/18 17:00 Dose: 10 mg Admin: 11/11/18 14:55 Dose: Naloxone HCl (Narcan) 0.1 mg IVPUSH ASDIRECTED PRN PRN Reason: Respiratory Depression Ondansetron HCl (Zofran) 4 mg IVPUSH Q6H PRN PRN Reason: Nausea/Vomiting Promethazine HCl (Phenergan) 25 mg IM Q6H PRN PRN Reason: Nausea/Vomiting Scopolamine (Transderm-Scop) 1.5 mg TRDERM Q72H PRN PRN Reason: Nausea Last Admin: 11/11/18 07:32 Dose: 1.5 mg Simethicone (Simethicone) 80 mg PO ASDIRECTED PRN PRN Reason: Gas Last Admin: 11/11/18 15:24 Dose: 80 mg Sodium Chloride (Saline Flush) 10 ml FLUSH ASDIRECTED PRN PRN Reason: Keep Vein Open Last Admin: 11/11/18 23:44 Dose: 10 ml Sodium Chloride (Saline Flush) 2.5 ml FLUSH ASDIRECTED PRN PRN Reason: Keep Vein Open Sodium Chloride (Normal Saline) 10 ml IV ASDIRECTED PRN PRN Reason: IV Use - Assessment Assessment (Free Text/Narrative):: 28 yo s/p TLH/BS POD1 , good pain control , ambulating voiding and tolerating regular diet - Plan Plan (Free Text/Narrative):: Discharge home today
--- NOTE | 2018-11-12 16:39 | OR ---
SURGEON: HUY CEDILLO DATE OF PROCEDURE: 11/11/2018 PREOPERATIVE DIAGNOSIS: A 28-year-old, para 2, with abnormal uterine bleeding and chronic pelvic pain. POSTOPERATIVE DIAGNOSIS: A 28-year-old, para 2, with abnormal uterine bleeding and chronic pelvic pain. PROCEDURE: Total laparoscopic hysterectomy, bilateral salpingectomy. ESTIMATED BLOOD LOSS: 100. IV FLUID: 1600. URINE OUTPUT: 225. NOTABLE FINDINGS: Normal-sized anteverted uterus. Laparoscopy showed evidence of bilateral tubal ligation. ANESTHESIA: Spinal. PRIMARY SURGEON: Huy Cedillo MD. SECONDARY SURGEON: Izabela Rapp MD. DESCRIPTION OF PROCEDURE: The patient was taken to the operating room where general anesthesia was performed without difficulty. She was prepared and draped in the dorsal lithotomy position with Everett stirrups. The speculum was used to expose the cervix. The anterior lip of the cervix was grasped. The cervix was sized to a 3.5. The cervix was then dilated to accommodate the Advincula and the uterus was sounded to 9 cm. The Advincula was placed without difficulty. Then, attention was placed to the abdomen where put in the umbilical incision. The abdomen was entered via direct entry and then the right and left lower quadrant port was placed two fingerbreadths above, one superior to the iliac spine. The patient was placed in Trendelenburg position. The bilateral ureters were observed. The colon was placed out of the posterior cul-de-sac, then with sequential the right tube and left tube were detached from the supporting pelvic peritoneum with the LigaSure device all the way to the cornua. The round ligament was transected two-third from the uterus and one-third from the pelvic sidewall. The broad ligament was then exposed and the uterine ligament and uterine artery were skeletonized. The bladder flap was created. The uterine vessels were then coagulated at the cup lateralized. The cup was then entered and circumferential incision was made between the uterus and the cervix with the Harmonic scalpel device. This was done on the right and the left. With the circumferential incision around the colpotomy cup, the uterus was then detached. Attention was then paid to the perineum where the uterus was then removed. The uterosacral ligaments were identified. The stitch was placed from the posterior vaginal wall to the uterosacral ligament over the pelvic peritoneum and the cul-de-sac to the other uterosacral ligament. Then, the colpotomy cup was closed anterior posteriorly with an interlocking stitch Polysorb. Once closed with the Polysorb, the cystoscopy was then performed. After sodium fluorescein was injected, bilateral ureteral jets were observed and the bladder was noted to be intact. The sponge stick was placed in the vagina. Attention was then paid to the abdomen. The incision was inspected and was noted to be hemostatic. The pneumoperitoneum was reduced to 5 mmHg and was also noted to be hemostatic. The gas was deflated and all the trocars were removed. The laparoscopic incision was closed with 3-0 Monocryl. All instrument and pad counts were correct x2. The patient tolerated the procedure well and was taken to the recovery room in stable condition. YE WREN /[id number]
== END 2018-11-12 10:00 | disposition home or self-care (01) ==
LOC: MW.SDS 06:25 → MW.OB 11:46 → MW.SDS 11-12 10:00
PROVIDERS: ATTEND Obstetrics & Gynecology
DX: D25.1 Intramural leiomyoma of uterus (principal); N87.0 Mild cervical dysplasia; N83.8 Other noninflammatory disorders of ovary, fallopian tube and broad ligament; E66.9 Obesity, unspecified; Z98.51 Tubal ligation status; Z88.5 Allergy status to narcotic agent; Z68.31 Body mass index [BMI] 31.0-31.9, adult; Z79.899 Other long term (current) drug therapy; Z90.49 Acquired absence of other specified parts of digestive tract
CPT/HCPCS: 36415; 58571; 80048; 84703; 85025; 86850; 86900; 86901; A9270; J0131; J0330; J0690; J1100; J1170; J1885; J1940; J2001; J2250; J2405; J2704; J2765; J3010; J3490

== ENCOUNTER 2019-02-20 09:37 | Emergency (ER) | payer OTHER ==
[2019-02-20 10:42] LABS: BLOOD UREA NITROGEN,BUN 13 mg/dL (7.0-18.0); CARBON DIOXIDE,CO2 24.7 mmol/L (21.0-32.0); CHLORIDE,CL 103 mmol/L (98-107); GLUCOSE RANDOM 79 mg/dL (74-106); LIPASE 80 U/L (73-393); SODIUM,NA 138 mmol/L (136-145)
[2019-02-20] MEDS ORDERED: HYDROmorphone 1 MG/ML Syringe IVPUSH PRN (10:42)
[2019-02-20] MEDS ORDERED: Iopamidol 755 MG/ML 500 ML Multipack Bottle IVPUSH ONE (11:30)
--- NOTE | 2019-02-20 11:43 | CR ---
Chest: 2 views of the chest were obtained. Comparison: Prior chest x-ray of 06/27/14. Heart size and mediastinum are normal. Lungs are clear. Slight scoliosis is noted within the spine. Nothing acute is seen within the visualized osseous structures. Previous cholecystectomy is noted. Impression: 1. Nothing acute is seen on 2 view chest x-ray. Diagnostic code #1 This report was dictated in [place] Standard Time
--- NOTE | 2019-02-20 11:59 | CT ---
CT abdomen and pelvis Technique: Multiple axial sections were obtained from above the dome of the diaphragm inferiorly through the pubic symphysis. Intravenous contrast was utilized. No oral contrast was given. Comparison: Prior CT abdomen and pelvis exam of 10/23/18. Findings: Visualized lung bases show nothing acute. Low density lesion is noted next to the ligamentum teres fissure. This is stable from prior exam. No additional abnormality is seen within the liver. Spleen appears within normal limits. Prior gastric surgery is noted. Adrenal glands show no nodule. Pancreas appears within normal limits. Aorta shows no aneurysm. No retroperitoneal adenopathy or mesenteric abnormalities are seen. No pelvic mass or adenopathy is seen. Appendix is seen and is normal in size. Small amount of free fluid is seen within the dependent pelvis. Kidneys show symmetric contrast enhancement without hydronephrosis or mass. Small fat-containing umbilical hernia is noted. Previous cholecystectomy is noted with surgical clips being seen. Bone window settings were reviewed which shows no acute osseous finding. Impression: 1. Small amount of free fluid within the pelvis which is most likely physiologic. 2. Low density lesion adjacent to the ligamentum teres fissure which is stable from previous exam. 3. Previous gastric surgery. 4. Other incidental findings. Nothing acute is appreciated. Diagnostic code #2 This report was dictated in [place] Standard Time
--- NOTE | 2019-02-20 12:37 | EDM.PDOC ---
ED HPI GENERAL MEDICAL PROBLEM - General Chief Complaint: Chest Pain Stated Complaint: CHEST PAIN Time Seen by Provider: 02/20/19 10:04 - History of Present Illness INITIAL COMMENTS - FREE TEXT/NARRATIVE: HPI 28-year-old obese female with history of gastric bypass and hysterectomy presents for evaluation of ~3 days of epigastric/chest pain that is without clearly identifiable provoking or relieving factors (no worsening with physical activity), endorses anorexia and nausea, denies dysuria, urinary frequency, diarrhea or constipation. M/S/F/SocHx notable for: please see HPI; remainder reviewed with patient and in chart. ROS: Negative constitutional, eye, cardiovascular, pulmonary, GI, , MSK, skin , neurologic, psychiatric, endocrine unless noted in the HPI. Exam HR 71, RR 18, BP 129/65, T 37.1C, SaO2 90% on room air. Gen: pleasant, non-toxic appearing, resting comfortably. HEENT: NC, AT, PEERL, EOMI. Resp: Clear to auscultation bilaterally, normal work of breathing. Card: Regular rate and rhythm with no murmurs rubs or gallops, extremities warm and well perfused. GI: ND, mild RUQ TTP, mild epigastric TTP, mild-moderate right lower quadrant tenderness palpation, mild left lower quadrant tenderness palpation, negative Jones's sign, no rebound or guarding. : No CVA tenderness to percussion bilaterally. MSK: No visible deformities, strength and tone WNL. Skin: Normal color with no visible lesions. Neuro: alert and oriented 3, no facial asymmetry, vision and hearing WNL. Psych: Mood and affect appropriate. Labs / Imaging (pertinent): WBC 7.4, HB 13.4, sodium 130, potassium 4.0, AST 14, ALT 26, alkaline phosphatase 91, troponin <0.050, lipase 80. UA - 40 ketones, negative nitrate, small bilirubin, negative leukocyte esterase. CXR: no acute cardiopulmonary process. CT Abd/pelvis: small amount of free fluid within the pelvis which is most likely physiologic. Low-density lesion adjacent to the ligament tarries fissure which is stable from previous exam. Previous gastric surgery. EKG: SR 59 bpm, no CA segment depressions, QRS 137 ms, RBBB, no ST segment elevations or depressions, discordant T wave inversions V1, no further discordant T wave inversions, no hyperacute T waves. MDM Previous chart, nursing note, and vitals reviewed. A: 28-year-old obese female with history of gastric bypass and hysterectomy presents for evaluation of ~3 days of epigastric/chest pain that is without clearly identifiable provoking or relieving factors (no worsening with physical activity), endorses anorexia and nausea, denies dysuria, urinary frequency, diarrhea or constipation. DDx: Biliary disease (cholecystitis, cholelithiasis, choledocholithiasis, biliary colic), pancreatitis, appendicitis, ureterolithiasis, peptic ulcer disease, GERD, ACS, PE. Evaluation: patient with epigastric pain, pertinent findings on the abdominal exam, and a concern for supradiaphragmatic etiology. With respect to a cardiothoracic etiology there are no features clearly consistent with an acute clinically significant process. The patient is a nonischemic EKG and negative troponin effectively excluding ACS, no features suggestive of unstable angina. No features consistent with pericarditis or myocarditis. The patient also has a normal cardiac silhouette and a low risk history effectively excluding pericardial effusion and dissection. No sign focal infiltrate, pneumothorax, or other acute cardiopulmonary abnormality. With respect to an intrabdominal/genitourinary process UA is negative, the CT is unremarkable with respect to an acute process, and labs are without evidence of pancreatitis, and liver enzymes are within acceptable limits. ED Course: vital signs stable within acceptable limits hydromorphone given for pain control. Disposition: discharge with limited RX for Larchwood and Zofran, instructed follow- up PCP tomorrow for repeat evaluation. Impression: epigastric pain. Epigastric Pain Score (Numeric/FACES): 7 - Related Data Allergies Allergy/AdvReac Type Severity Reaction Status Date / Time morphine Allergy Nausea and Verified 02/20/19 09:45 Vomiting Home Meds: Home Meds Calcium Carbonate [Calcium] 2 tab PO DAILY 11/07/18 [History] Ibuprofen [Motrin Ib] 4 tab PO ASDIRECTED PRN 11/07/18 [History] Multivit-Min/Iron/Folic Acid/K [Bariatric Mv-Iron 45 mg Cap] 1 tab PO DAILY [History] PARoxetine [Paxil] 20 mg PO DAILY 11/07/18 [History] Hydrocodone/Acetaminophen [Vicodin 5-300 mg Tablet] 1 each PO Q6HR PRN 7 Days # 15 tablet 11/12/18 [Rx] Acetaminophen/HYDROcodone [Larchwood 325-5 MG] 1 - 2 tab PO Q6H PRN #6 tablet [Rx] Ondansetron [Zofran ODT] 4 mg PO Q6H PRN #6 tab.dis 02/20/19 [Rx] Past Medical History HEENT History: Reports: None Cardiovascular History: Reports: None Respiratory History: Reports: None Gastrointestinal History: Reports: Hemorrhoids Genitourinary History: Reports: Renal Calculus BOOM BOSS History: Reports: Musculoskeletal History: Reports: Fracture Other Musculoskeletal History: hx fx arm as a chlld Neurological History: Reports: Other (See Below) Other Neuro History: increased intracarianal pressure, has had multiple lumbar punctures to relieve pressure- OK since loosing 100 pounds after gastric by- pass in april of this year Psychiatric History: Reports: Anxiety, Depression Endocrine/Metabolic History: Reports: Obesity/BMI 30+ Hematologic History: Reports: None Immunologic History: Reports: None Oncologic (Cancer) History: Reports: None Dermatologic History: Reports: None - Infectious Disease History Infectious Disease History: Reports: Chicken Pox - Past Surgical History Head Surgeries/Procedures: Reports: None HEENT Surgical History: Reports: None Cardiovascular Surgical History: Reports: None Respiratory Surgical History: Reports: None GI Surgical History: Reports: Bariatric Procedure Female Surgical History: Reports: Tubal Ligation Endocrine Surgical History: Reports: None Neurological Surgical History: Reports: Other (See Below) Other Neurological Surgeries/Procedures: multiple lumbar punctures Musculoskeletal Surgical History: Reports: None Oncologic Surgical History: Reports: None Dermatological Surgical History: Reports: None Social & Family History - Family History Family Medical History: Noncontributory - Tobacco Use Smoking Status *Q: Never Smoker - Caffeine Use Caffeine Use: Reports: None - Recreational Drug Use Recreational Drug Use: No ED ROS GENERAL - Review of Systems Review Of Systems: See Below ED EXAM, GENERAL - Physical Exam Exam: See Below Course - Vital Signs Last Recorded V/S: Last Vital Signs Temp 37.1 C 02/20/19 09:40 Pulse 66 02/20/19 11:03 Resp 16 02/20/19 11:03 BP 106/64 02/20/19 11:03 Pulse Ox 98 02/20/19 11:03 - Orders/Labs/Meds Orders: Active Orders 24 hr Category Date Time Status EKG 12 Lead [EKG Documentation Completion] [RC] STAT Care 02/20/19 10:31 Active HYDROmorphone [Dilaudid] Med 02/20/19 10:42 Active 0.5 - 1 mg IVPUSH Q1H PRN Medication Orders Hydromorphone HCl (Dilaudid) 0.5 - 1 mg IVPUSH Q1H PRN PRN Reason: Pain Last Admin: 02/20/19 11:02 Dose: 0.5 mg Labs: Laboratory Tests 02/20/19 02/20/19 02/20/19 Range/Units 10:00 10:05 10:05 WBC 7.39 (4.0-11.0) K/uL RBC 4.40 (4.30-5.90) M/uL Hgb 13.4 (12.0-16.0) g/dL Hct 40.4 (36.0-46.0) % MCV 91.8 (80.0-98.0) fL MCH 30.5 (27.0-32.0) pg MCHC 33.2 (31.0-37.0) g/dL RDW Std Deviation 45.0 (28.0-62.0) fl RDW Coeff of Man 13 (11.0-15.0) % Plt Count 217 (150-400) K/uL MPV 11.30 (7.40-12.00) fL Neut % (Auto) 59.4 (48.0-80.0) % Lymph % (Auto) 32.7 (16.0-40.0) % [place] % (Auto) 4.2 (0.0-15.0) % Eos % (Auto) 3.4 (0.0-7.0) % Baso % (Auto) 0.3 (0.0-1.5) % Neut # (Auto) 4.4 (1.4-5.7) K/uL Lymph # (Auto) 2.4 (0.6-2.4) K/uL [place] # (Auto) 0.3 (0.0-0.8) K/uL Eos # (Auto) 0.3 (0.0-0.7) K/uL Baso # (Auto) 0.0 (0.0-0.1) K/uL Nucleated RBC % 0.0 /100WBC Nucleated RBCs # 0 K/uL Sodium 138 (136-145) mmol/L Potassium 4.0 (3.5-5.1) mmol/L Chloride 103 (98-107) mmol/L Carbon Dioxide 24.7 (21.0-32.0) mmol/L BUN 13 (7.0-18.0) mg/dL Creatinine 0.9 (0.6-1.0) mg/dL Est Cr Clr Drug Dosing 86.34 mL/min Estimated GFR (MDRD) > 60.0 ml/min Glucose 79 (74-106) mg/dL Calcium 9.2 (8.5-10.1) mg/dL Total Bilirubin 0.5 (0.2-1.0) mg/dL AST 14 L (15-37) IU/L ALT 26 (14-63) IU/L Alkaline Phosphatase 91 (46-116) U/L Troponin I < 0.050 (0.000-0.056) ng/mL Total Protein 7.4 (6.4-8.2) g/dL Albumin 4.1 (3.4-5.0) g/dL Globulin 3.3 (2.6-4.0) g/dL Albumin/Globulin Ratio 1.2 (0.9-1.6) Lipase 80 (73-393) U/L Urine Color YELLOW Urine Appearance CLEAR Urine pH 5.5 (5.0-8.0) Ur Specific [place] >= 1.030 (1.001-1.035) Urine Protein NEGATIVE (NEGATIVE) mg/dL Urine Glucose (UA) NEGATIVE (NEGATIVE) mg/dL Urine Ketones 40 H (NEGATIVE) mg/dL Urine Occult Blood NEGATIVE (NEGATIVE) Urine Nitrite NEGATIVE (NEGATIVE) Urine Bilirubin SMALL H (NEGATIVE) Urine Ictotest NEGATIVE Urine Urobilinogen 0.2 (<2.0) EU/dL Ur Leukocyte Esterase NEGATIVE (NEGATIVE) Meds: Medications Generic Name Dose Route Start Last Admin Trade Name Freq PRN Reason Stop Dose Admin Hydromorphone HCl 0.5 - 1 mg 02/20/19 10:42 02/20/19 11:02 Dilaudid IVPUSH 0.5 mg Q1H PRN Administration Pain Discontinued Medications Generic Name Dose Route Start Last Admin Trade Name Freq PRN Reason Stop Dose Admin Iopamidol 100 ml 02/20/19 11:30 02/20/19 11:31 Isovue Multipack-370 (76%) IVPUSH 02/20/19 11:31 100 ml ONETIME ONE Administration Departure - Departure Time of Disposition: 12:35 Disposition: Home, Self-Care 01 Clinical Impression: Epigastric pain - Discharge Information Prescriptions: Acetaminophen/HYDROcodone [Larchwood 325-5 MG] 1 - 2 tab PO Q6H PRN #6 tablet PRN Reason: Pain Ondansetron [Zofran ODT] 4 mg PO Q6H PRN #6 tab.dis PRN Reason: Nausea Referrals: PCP,None [Primary Care Provider] - Additional Instructions: You were in seen in the [facility] Emergency Department for evaluation of upper abdominal pain. At the time of your evaluation the cause of your symptoms is unclear. You have been prescribed a limited amount of pain medications and should follow up with your primary care physician tomorrow for repeat evaluation. Please read and follow all of the instructions below. When calling for follow-up care, please make the office aware that this follow- up is from your recent emergency room visit. If for any reason you are refused follow-up, please contact the [facility] Emergency Department at and asked to speak to the emergency department charge nurse. Your care today was limited to identifying and treating emergent medical problems only. Many people have subtle differences in their test results that require follow up with their outpatient physician(s) to correctly determine if this represents a normal variation or concerning abnormality with respect to your specific health. The care given to you today was limited to identifying and treating emergent medical problems - you need to request a copy of all of your medical records from today's visit and follow up with your outpatient physician(s) to review both today's visit and your overall health. If you have any new symptoms or if you are at all concerned about your health please return immediately to the emergency department. Abdominal Pain The exact cause of your abdominal pain is not certain. Based upon the testing today you are felt to be at low risk for discharge. There are no current signs of a life threatening illness or injury. Your condition does not seem serious now; however, sometimes the signs of a serious problem may take more time to appear. For this reason, it is important for you to watch for any new symptoms, problems, or worsening of your condition. Over the next few days, the abdominal pain may come and go, or be continuous. Other common symptoms can include nausea and vomiting. Sometimes it can be difficult to tell if you feel nauseous , you may just feel bad and not associate that feeling with nausea. Constipation , diarrhea, and a fever may go along with the pain. The pain may continue even if treated correctly over the following days. Depending on how things go, sometimes the cause can become clear and may require further or different treatment. Additional evaluations, medications, or tests may be needed. If your symptoms do not worsen but you are still having pain after 12-24 hours, please call your primary care physician to arrange for further evaluation. Return to the emergency department if any of the following occur: Pain gets worse or moves to the right lower abdomen New or worsening vomiting or diarrhea Swelling of the abdomen Unable to pass gas or stool for more than 8 hours Fever of 100.4F (38C) or higher, or as directed by your healthcare provider. Blood in vomit or bowel movements (dark red or black color) If you have yellow skin or eyes or if you have dark brown urine. Weakness, dizziness Chest, arm, back, neck or jaw pain Unexpected vaginal bleeding or missed period Trouble breathing Confusion Fainting or loss of consciousness Rapid heart rate Seizure If you are light headed upon standing or passing out. If you are otherwise concerned about your health. Home Care Do not force yourself to eat, especially if having cramps, vomiting, or diarrhea. Water is important so you do not get dehydrated. Soup may also be good. Sports drinks may also help, especially if they are not too acidic. Make sure you don't drink sugary drinks as this can make things worse. Take liquids in small amounts. Caffeine sometimes makes the pain and cramping worse. Avoid dairy products if you have vomiting or diarrhea. Don't eat large amounts at a time. Wait a few minutes between bites. Eat a diet low in fiber (called a low-residue diet). Foods allowed include refined breads, white rice, fruit and vegetable juices without pulp, tender meats. These foods will pass more easily through the intestine. Avoid whole-grain foods, whole fruits and vegetables, meats, seeds and nuts, fried or fatty foods, dairy, alcohol and spicy foods until your symptoms go away. Hydrocodone/Acetaminophen (Brand Names: Larchwood, Vicodin) Take as directed on the prescription for relief of pain. This product contains acetaminophen (Tylenol) do not use it with other Acetaminophen containing medications. This drug may cause mild nausea, if so you may take it with a small snack. This drug will cause constipation, if you experience a decrease in bowel movements purchase "Senna-S" (sennasides and docusate) which is available over the counter at pharmacies and take as directed on the bottle. Call your physician if you have not had bowel movemen in two days. This drug may cause fatigue - do not drive or engage in other hazardous activities when using this medication. Do no drink alcohol when using this medication. Store this drug safely, it is a high risk medication if misused. SIDE EFFECTS: Tell your doctor immediately if any of these unlikely but serious side effects occur: mental/mood changes, severe stomach/abdominal pain, difficulty urinating. Seek immediate medical attention if any of these rare but serious side effects occur: fainting, seizure, slow/shallow breathing, unusual drowsiness/difficulty waking up. Taking more than the recommended dose of acetaminophen may cause serious (possibly fatal) liver disease. Seek immediate medical attention if you have any symptoms of liver damage, including: dark urine, persistent nausea/vomiting, stomach/abdominal pain, yellowing eyes/skin. A very serious allergic reaction to this drug is rare. However, seek immediate medical attention if you notice any symptoms of a serious allergic reaction, including: rash, itching/swelling (especially of the face/tongue/throat), severe dizziness, trouble breathing. This is not a complete list of possible side effects. PRECAUTIONS: Before taking this medication, tell your doctor or pharmacist if you are allergic to it; or to other narcotics (such as morphine, codeine); or if you have any other allergies. This product may contain inactive ingredients, which can cause allergic reactions or other problems. Talk to your pharmacist for more details. Before using this medication, tell your doctor or pharmacist your medical history, especially of: brain disorders (such as head injury, tumor , seizures), breathing problems (such as asthma, sleep apnea, chronic obstructive pulmonary disease-COPD), kidney disease, liver disease, mental/mood disorders (such as confusion, depression), personal or family history of regular use/abuse of drugs/alcohol, stomach/intestinal problems (such as blockage, constipation, diarrhea due to infection, paralytic ileus), difficulty urinating (such as due to enlarged prostate). This drug may make you dizzy or drowsy. Avoid alcoholic beverages. Acetaminophen may cause liver damage. Daily use of alcohol, especially when combined with acetaminophen, may increase your risk for liver damage. Caution is advised if you have diabetes, alcohol dependence, liver disease, phenylketonuria (PKU), or any other condition that requires you to limit/avoid these substances in your diet. Ask your doctor or pharmacist about using this product safely. Older adults may be more sensitive to the effects of this drug, especially dizziness, drowsiness, urinary problems. During , this medication should be used only when clearly needed. Using it for long periods or in high doses near the expected delivery date is not recommended because of the potential for harm to the unborn baby. Discuss the risks and benefits with your doctor. Babies born to mothers who have used this medication for an extended time may have withdrawal symptoms such as irritability, abnormal/persistent crying, vomiting, or diarrhea. If you notice any of these symptoms in your , tell the doctor promptly. This medication passes into breast milk and may rarely have undesirable effects on a nursing infant. Tell the doctor immediately if your baby develops unusual sleepiness, difficulty feeding, or trouble breathing. Consult your doctor before breast-feeding. Ondansetron (Brand Name: Zofran) Take one tablet every 6 hours as needed for nausea SIDE EFFECTS: Headache, fever, lightheadedness, dizziness, drowsiness, tiredness , constipation. If these effects persist or worsen, notify your doctor promptly. Many people using this medication do not have serious side effects. Tell your doctor right away if you have any serious side effects, including: stomach pain, muscle stiffness/spasm, vision changes (e.g., temporary loss of vision, blurred vision, uncontrollable eye movements). Get medical help right away if any of these rare but very serious side effects occur: chest pain, fainting, slow/fast/irregular heartbeat. A very serious allergic reaction to this drug is rare. However, get medical help right away if you notice any of the following symptoms of a serious allergic reaction: rash, itching/swelling ( especially of the face/tongue/throat), severe dizziness, trouble breathing. This is not a complete list of possible side effects. If you notice other effects not listed above, contact your doctor or pharmacist. PRECAUTIONS: Before using ondansetron, tell your doctor or pharmacist if you are allergic to it; or to other serotonin blockers (e.g., granisetron); or if you have any other allergies. This product may contain inactive ingredients, which can cause allergic reactions or other problems. Talk to your pharmacist for more details. Before using this medication, tell your doctor or pharmacist your medical history, especially of: irregular heartbeat, liver disease, stomach /intestinal problems (e.g., recent abdominal surgery, ileus, swelling). Ondansetron may cause a condition that affects the heart rhythm (QT prolongation ). QT prolongation can infrequently result in serious (rarely fatal) fast/ irregular heartbeat and other symptoms (such as severe dizziness, fainting) that require immediate medical attention. The risk of QT prolongation may be increased if you have certain medical conditions or are taking other drugs that may affect the heart rhythm (see also Drug Interactions section). Before using ondansetron, tell your doctor or pharmacist if you have any of the following conditions: certain heart problems (heart failure, slow heartbeat, QT prolongation in the EKG), family history of certain heart problems (QT prolongation in the EKG, sudden cardiac ). Low levels of potassium or magnesium in the blood may also increase your risk of QT prolongation. This risk may increase if you use certain drugs (such as diuretics/"water pills") or if you have conditions such as severe sweating, diarrhea, or vomiting. Talk to your doctor about using ondansetron safely. This drug may make you dizzy or drowsy or cause blurred vision. Do not drive, use machinery, or do any activity that requires alertness or clear vision until you are sure you can perform such activities safely. Limit alcoholic beverages. Infants younger than 5 months may be more sensitive to the effects of this drug, especially diarrhea. During , this medication should be used only when clearly needed. Discuss the risks and benefits with your doctor. It is not known if this drug passes into breast milk. Consult your doctor before breast-feeding. DRUG INTERACTIONS: Drug interactions may change how your medications work or increase your risk for serious side effects. This document does not contain all possible drug interactions. Keep a list of all the products you use (including prescription/nonprescription drugs and herbal products) and share it with your doctor and pharmacist. Do not start, stop, or change the dosage of any medicines without your doctor's approval. Some products that may interact with this drug include: apomorphine, tramadol. Many drugs besides ondansetron may affect the heart rhythm (QT prolongation), including dofetilide, pimozide, procainamide, amiodarone, quinidine, sotalol, macrolide antibiotics (such as erythromycin), among others. Therefore, before using ondansetron, report all medications you are currently using to your doctor or pharmacist. Prescriptions: If you are uninsured or have financial difficulties with filling your prescription(s), you may consider using a free pharmacy discount service such as [employer] ([facility]) or [employer] ([employer] (formerly [employer] These services allow you to search for a medication on your phone (or computer) and obtain a coupon that usually has a significant discount from the list jensen at a pharmacy. Your physician as well as [facility] does not have a financial relationship with either of these services. You may also wish to speak with your physician to determine if lower cost prescriptions are possible. Obtaining primary care: 1. [facility] provides pediatrics (children), family medicine (children, adults, and some obstetrical care), and internal medicine (adults). Further specialty care is also available. Same day appointments are available. They may be contacted at [phone] and are open Sunday through Sunday 8 AM to 5 PM. The [facility] are located at [facility], [address] [place], [place] [address] [place], [place] [address]. 2. [facility] offers family medicine, internal medicine, womens health, and further specialty care. [facility] may be contacted at [phone]. [facility] is located at [facility] [place], [address]. 3. If you have health insurance, please also contact your insurer for a list of accepting providers under your policy, you may contact these providers for further health care. Occupational health: Work related injuries may consider following up with [facility], . Occupational health services are located at [address] [place] [id number] and are open Sunday through Sunday from 7: 30 am to 5:00 pm. Obstetrical and Gynecological Care: [facility], , Sunday through Sunday 8 AM to 5 PM. [address] [place] [address]. Eyecare: If you have an eye injury you should follow up with your quiller hand or with [facility], at [phone] or [phone] , they are located at [address] [place] [address]. [facility] Abraham Gandara DDS. [address] [place], [place]. Ph. [phone] Dl Gandara DDS MS. [address] [facility] 104, [place], [place]. Ph. Roberto Marie DDS. 10 [address] [place] [address]. Ph. [phone] Vinnie Alejandro DDS. [address] [facility] 4 [place], [place]. Ph. [phone] Caden Coyne [facility]. [address] [facility] [address] [place], [place]. Ph. [phone] Phuong Mcgovern DDS. [address] [facility]. Ph. [phone] [facility]. [address] [place], [place]. Ph. [phone] [facility]. [address] [place] [address], [place], [place]. Ph. [phone] [facility] [address] [place] [address]. Ph. [phone] [facility]. [address] [place] [address] [address] [place]. Ph. [facility]. [address] [place], [place]. Ph. Sepsis Event Note - Evaluation Sepsis Screening Result: No Definite Risk - Focused Exam Vital Signs: Vital Signs Temp Pulse Resp BP Pulse Ox 02/20/19 11:03 66 16 106/64 98 02/20/19 09:40 37.1 C 71 18 129/65 98 Date Exam was Performed: 02/20/19 Time Exam was Performed: 12:35 - My Orders Last 24 Hours: My Active Orders 02/20/19 10:31 EKG 12 Lead [EKG Documentation Completion] [RC] STAT 02/20/19 10:42 HYDROmorphone [Dilaudid] 0.5 - 1 mg IVPUSH Q1H PRN - Assessment/Plan Last 24 Hours: My Active Orders 02/20/19 10:31 EKG 12 Lead [EKG Documentation Completion] [RC] STAT 02/20/19 10:42 HYDROmorphone [Dilaudid] 0.5 - 1 mg IVPUSH Q1H PRN
[2019-02-20 12:53] VITALS: BP 115/63; PULSE 62
== END 2019-02-20 13:07 | disposition home or self-care (01) ==
LOC: MW.ED 09:37
DX: R10.13 Epigastric pain (principal); F41.9 Anxiety disorder, unspecified; F32.9 Major depressive disorder, single episode, unspecified; E66.9 Obesity, unspecified; Z68.24 Body mass index [BMI] 24.0-24.9, adult; Z88.5 Allergy status to narcotic agent; Z79.899 Other long term (current) drug therapy
CPT/HCPCS: 36415; 71046; 74177; 80053; 81003; 83690; 84484; 85025; 93005; 96374; 99285; J1170; Q9967; 99283